=== PATIENT | male | born 1955 ===

== ENCOUNTER 2024-10-11 08:46 | Inpatient (IN) ==
--- NOTE | 2024-09-04 13:29 | PAT Medication Instructions ---
Medication Instructions Date of Service September 04, 2024 Home Medications ascorbic acid (vitamin C) 1,000 mg tablet (Vitamin C) 1 g PO QAM aspirin 81 mg capsule 81 mg PO QAM cholecalciferol (vitamin D3) 50 mcg (2,000 unit) capsule (Vitamin D3) 50 mcg PO QAM cyanocobalamin (vitamin B-12) 2,000 mcg tablet,extended release (Vitamin B-12 ER) 2,000 mcg PO QAM empagliflozin 25 mg tablet (Jardiance) 25 mg PO QAM esomeprazole magnesium 40 mg capsule,delayed release 40 mg PO QAM fenofibrate nanocrystallized 145 mg tablet 145 mg PO QAM glipizide 5 mg tablet, extended release 24 hr 5 mg PO QAM pioglitazone 30 mg tablet 30 mg PO QAM rosuvastatin 20 mg tablet 40 mg PO QAM varenicline tartrate 1 mg tablet 1 mg PO BID MEDICATION INSTRUCTIONS: ASK your prescriber and surgeon aspirin 81 mg capsule 81 mg PO QAM STOP taking 24 hours before surgery fenofibrate nanocrystallized 145 mg tablet 145 mg PO QAM DO NOT take the morning of surgery cholecalciferol (vitamin D3) 50 mcg (2,000 unit) capsule (Vitamin D3) 50 mcg PO QAM ascorbic acid (vitamin C) 1,000 mg tablet (Vitamin C) 1 g PO QAM cyanocobalamin (vitamin B-12) 2,000 mcg tablet,extended release (Vitamin B-12 ER) 2,000 mcg PO QAM varenicline tartrate 1 mg tablet 1 mg PO BID glipizide 5 mg tablet, extended release 24 hr 5 mg PO QAM pioglitazone 30 mg tablet 30 mg PO QAM Take morning of surgery With a small sip of water, OTHERWISE NOTHING TO EAT OR DRINK AFTER MIDNIGHT: rosuvastatin 20 mg tablet 40 mg PO QAM esomeprazole magnesium 40 mg capsule,delayed release 40 mg PO QAM Take evening before surgery varenicline tartrate 1 mg tablet 1 mg PO BID Other Notes STOP taking 3 days before surgery: empagliflozin 25 mg tablet (Jardiance) 25 mg PO QAM If you have any questions please call us at [phone] or [phone] or [phone] or [phone]
--- NOTE | 2024-09-11 12:39 | Anesthesiology Consultation ---
Date of Service September 11, 2024 Assessment & Plan (1) Encounter for pre-operative examination: Plan - check BSG am DOS. - cardiology office visit 07/20/24: "...coronary artery disease (CABG 2002)/ischemic cardiomyopathy. Stable. No anginal symptoms reported. Breathing stable. Euvolemic on examination...LVEF mildly reduced/lower limits of normal ~ 50%...of note, he may require back surgery in the near future. At this point he is stable and optimized from cardiac standpoint. Provided there is no change in his clinical status prior to the anticipated operation, he may proceed without additional cardiac testing..." - facial hair: patient was instructed on shaving/trimming facial hair. Chart Review Chart Review: Acceptable Risk for Surgery and Patient seen in Pre Admission Testing Teaching & Discussion Pre-Anesthesia Teaching/Discussion Notes: Instructed NPO after midnight before surgery, except medications with 15 cc of water. Medication instructions provided according to the PAT guidelines. History Surgery Operation Date: 10/11/24 07:45 Proposed Procedures p L3-L5 Decompression and Fusion, Possible L5-S1, Spinal Cord Monitoring - Giovanni Girard DO Height/Weight Height: 6 ft Weight: 113.6 kg Allergies Allergy/AdvReac Type Severity Reaction Status Date / Time Gadolinium-Containing Allergy Chest Pain Verified 09/01/24 09:33 Contrast Medi Medications Home Medications Medication Instructions Recorded Confirmed Last Taken ascorbic acid (vitamin C) 1,000 mg 1 g PO QAM 09/01/24 09/01/24 Unknown tablet (Vitamin C) aspirin 81 mg capsule 81 mg PO QAM 09/01/24 09/01/24 Unknown cholecalciferol (vitamin D3) 50 50 mcg PO QAM 09/01/24 09/01/24 Unknown mcg (2,000 unit) capsule (Vitamin D3) cyanocobalamin (vitamin B-12) 2,000 mcg PO QAM 09/01/24 09/01/24 Unknown 2,000 mcg tablet,extended release (Vitamin B-12 ER) empagliflozin 25 mg tablet 25 mg PO QAM 09/01/24 09/01/24 Unknown (Jardiance) esomeprazole magnesium 40 mg 40 mg PO QAM 09/01/24 09/01/24 Unknown capsule,delayed release fenofibrate nanocrystallized 145 145 mg PO QAM 09/01/24 09/01/24 Unknown mg tablet glipizide 5 mg tablet, extended 5 mg PO QAM 09/01/24 09/01/24 Unknown release 24 hr pioglitazone 30 mg tablet 30 mg PO QAM 09/01/24 09/01/24 Unknown rosuvastatin 20 mg tablet 40 mg PO QAM 09/01/24 09/01/24 Unknown varenicline tartrate 1 mg tablet 1 mg PO BID 09/01/24 09/01/24 Unknown Past Medical History Medical History (Updated 09/11/24 @ 15:34 by Disha Harvey PA-C) Aortic stenosis mild on 08/13/2023 echo CAD (coronary artery disease) s/p CABG x 4 in 2002 per cardio records (5 per patient) and THEODORE to mid LAD 2003 (patient believes there are 2) Diabetes mellitus, type 2 NIDDM History of COPD controlled, stable per pt-denies inhaler use History of [place] (myocardial infarction) multiple, most recent 2014-med management advised per cardio records Hx of gastroesophageal reflux (GERD) controlled, stable per pt Hx of hyperlipidemia Hypertension controlled, stable per pt Ischemic cardiomyopathy Sleep apnea no device Patient denies h/o stroke, seizures, blood clots/DVTs or blood transfusions. Exercise / Class Metabolic Activity III < 4 Walking/Shop/Light housework (denies chest discomfort or shortness of breath with usual activities) Past Surgical History Surgical History History of cardiac cath multiple, unsure of dates, most done at [facility], 1 done in [place], has total of 2 stents; f/u dr. landry, [facility] cardio History of ear surgery as a child, "unsure exactly what they did" Hx of appendectomy age 14 Hx of CABG CABG x 4 per cardio records-2002 Hx of colonoscopy Hx of tonsillectomy Past Anesthesia History No Hx of Anesthesia Complications and No Family Hx of Anesthesia Complications History of PONV No Hx of PONV and No Hx of Motion Sickness Social History Smoking Status: Former smoker Do You Dip or Chew Tobacco: No Smoking End Date: over 6 weeks ago Hx Alcohol Use: Yes (geremias ruvalcaba) alcohol intake frequency: 0-2 drinks per day Hx Substance Use: Yes substance use type: former substance user, marijuana, crack/cocaine, hallucin ogens, methamphetamine and prescription drug Last Used Substance Other:: "none for years" Review of Systems Patient denies chest pain, shortness of breath, dyspnea on exertion, fever, chills, cough, wheezing, or palpitations. Physical Exam Vital Signs Vitals BP 137/64 P 71 TEMP 98.5 SP02 95% on RA RESP 18 Physical Patient resting comfortably in chair in no acute distress, alert and oriented, responding appropriately throughout visit Full cervical extension range of motion without pain TMD 3.5 finger breadths Mallampati Score 2 Dentition: several chipped and missing teeth, denies loose teeth, caps/crowns, implants or bridges Lungs: normal respiratory effort. Good air movement, clear throughout to auscultation, no adventitious breath sounds Cardiac: regular rate and rhythm, 2/6 systolic murmur, no gallops or rubs Carotid arteries: negative bruit bilat Lab Results Anesthesia Preop Results Results Anesthesia Widget: WBC 8.73 K/ul (4.8-10.8) 09/11/24 Hgb 15.8 g/dl (14.0-18.0) 09/11/24 Hct 47.4 % (42.0-52.0) 09/11/24 Plt 202 K/uL (130-400) 09/11/24 Na 137 mmol/L (136-145) 09/11/24 K 4.1 mmol/L (3.5-5.1) 09/11/24 Cl 101 mmol/L (98-107) 09/11/24 CO2 31 mmol/L (21-32) 09/11/24 BUN 22 mg/dl (6-23) 09/11/24 Creat 1.66 mg/dl (0.6-1.4) H 09/11/24 Glucose Level 151 mg/dl (70-99(Fasting)) H 09/11/24 PT 11.1 Seconds (9.0-12.0) 09/11/24 PTT 27 Seconds (21-31) 09/11/24 INR 1.0 (0.9-1.1) 09/11/24 HA1c 6.9 % (4.5-5.6) H 09/11/24 Urine Color Yellow 09/11/24 Urine Appearance Clear (Clear) 09/11/24 Urine pH 5.0 (4.5-7.5) 09/11/24 Urine Specific [place] 1.036 (1.000-1.030) H 09/11/24 Urine Protein 3+ (Negative) H 09/11/24 Urine Glucose (UA) 2+ (Negative) H 09/11/24 Urine Ketones Trace (Negative) H 09/11/24 Urine Blood Negative (Negative) 09/11/24 Urine Nitrite Negative (Negative) 09/11/24 Urine Bilirubin Negative (Negative) 09/11/24 Urine Urobilinogen Negative (Negative) 09/11/24 Urine Leukocyte Esterase Negative (Negative) 09/11/24 Urine WBC (Auto) 0-5 /hpf (0-5) 09/11/24 Urine RBC (Auto) 0-2 /hpf (0-2) 09/11/24 Urine Hyaline Casts (Auto) 0-2 /lpf (0-2) 09/11/24 Urine Epithelial Cells (Auto) 0-2 /hpf (0-2) 09/11/24 Urine Bacteria (Auto) None Seen (None Seen) 09/11/24 Blood Type A Positive 09/11/24 Antibody Screen NEGATIVE 09/11/24 Testing Electrocardiogram Date: 07/20/24 Sinus rhythm-frequent ectopic ventricular beats, rate 73 bpm Nonspecific QRS widening Chest X-Ray Date: 09/11/24 No acute cardiopulmonary findings. Cardiomegaly. Echocardiogram Date: 08/13/23 EF 50% Normal LV wall motion Mildly calcified mitral valve, mild mitral regurgitation Mild aortic stenosis (ARGLEIA 1.7 cm2, mean gradient 9 mmHg) Mildly dilated 3.7 cm Dilated inferior vena cava Stress Test Date: 12/29/21 Negative for ischemia Moderate sized fixed perfusion defect involving the inferolateral wall re- demonstration Hypokinesis of the septal wall EF 32%
[2024-10-11] MEDS: LR 15ML/HR IV SCH (09:49)
[2024-10-11] MEDS: LR 60ML/HR IV SCH (09:50)
[2024-10-11] MEDS: GABAPENTIN 300 MG CAP PO SCH (09:56)
[2024-10-11] MEDS: ACETAMINOPHEN 500 MG TAB PO SCH (09:56)
[2024-10-11] MEDS: CeleBREX 200 MG CAP PO SCH (09:56)
[2024-10-11] MEDS ORDERED: fentaNYL citrate PF 100 MCG/2 ML VIAL ONE (10:02)
[2024-10-11] MEDS ORDERED: ROCURONIUM BROMIDE 10 MG/ML 5 ML VIAL IV ONE (10:02)
[2024-10-11] MEDS ORDERED: ONDANSETRON INJ 2 MG/ML 2 ML VIAL ONE (10:02)
[2024-10-11] MEDS ORDERED: LIDOCAINE 2% 2 ML VIAL/AMP(20MG/ML) INFIL ONE (10:02)
[2024-10-11] MEDS ORDERED: PROPOFOL IV EMULSION 10 MG/ML 20 ML VIAL IV ONE (10:02)
--- NOTE | 2024-10-11 10:17 | History & Physical Bridge Note ---
Date of Service October 11, 2024 History & Physical Bridge Note I have examined the patient, reviewed the History & Physical and in the interval since the performance of the History & Physical I have noted the following changes of clinical significance: no changes noted
--- NOTE | 2024-10-11 10:18 | History & Physical Report ---
Date of Service October 11, 2024 Assessment & Plan (1) Two-level lumbosacral spondylosis with radiculopathy: Plan: L3-L5 decompression and fusion, possible L5-S1 History of Present Illness Chief Complaint: Back and leg pain Primary Care Provider: NO PCP This is a 69-year-old male presents chronic persistent back and leg pain after failing course of nonoperative care is here for surgical invention. Allergies Allergy/AdvReac Type Severity Reaction Status Date / Time Gadolinium-Containing Allergy Chest Pain Verified 10/11/24 09:18 Contrast Medi Home Medications Medication Instructions Recorded Confirmed Type ascorbic acid (vitamin C) 1,000 mg 1 g PO QAM 09/01/24 10/11/24 History tablet (Vitamin C) aspirin 81 mg capsule 81 mg PO QAM 09/01/24 10/11/24 History cholecalciferol (vitamin D3) 50 50 mcg PO QAM 09/01/24 10/11/24 History mcg (2,000 unit) capsule (Vitamin D3) cyanocobalamin (vitamin B-12) 2,000 mcg PO QAM 09/01/24 10/11/24 History 2,000 mcg tablet,extended release (Vitamin B-12 ER) empagliflozin 25 mg tablet 25 mg PO QAM 09/01/24 10/11/24 History (Jardiance) esomeprazole magnesium 40 mg 40 mg PO QAM 09/01/24 10/11/24 History capsule,delayed release fenofibrate nanocrystallized 145 145 mg PO QAM 09/01/24 10/11/24 History mg tablet (Tricor) glipizide 5 mg tablet, extended 5 mg PO QAM 09/01/24 10/11/24 History release 24 hr rosuvastatin 20 mg tablet 40 mg PO QAM 09/01/24 10/11/24 History varenicline tartrate 1 mg tablet 1 mg PO BID 09/01/24 10/11/24 History (Chantix) Past Med/Surg History Problem List (Updated 10/11/24 @ 10:18 by Giovanni Girard DO) Two-level lumbosacral spondylosis with radiculopathy Medical History (Updated 10/11/24 @ 10:18 by Giovanni Girard DO) Aortic stenosis mild on 08/13/2023 echo Hypertension controlled, stable per pt Ischemic cardiomyopathy History of [place] (myocardial infarction) multiple, most recent 2015-med management advised per cardio records CAD (coronary artery disease) s/p CABG x 4 in 2002 per cardio records (5 per patient) and [place] to mid LAD 2003 (patient believes there are 2) Sleep apnea no device History of COPD controlled, stable per pt-denies inhaler use Hx of gastroesophageal reflux (GERD) controlled, stable per pt Diabetes mellitus, type 2 NIDDM Hx of hyperlipidemia Surgical History Hx of colonoscopy Hx of tonsillectomy Hx of appendectomy age 14 History of ear surgery as a child, "unsure exactly what they did" History of cardiac cath multiple, unsure of dates, most done at [facility], 1 done in [place], has total of 2 stents; f/u dr. landry, [facility] cardio Hx of CABG CABG x 4 per cardio records-2002 Social History Smoking Status: Former smoker Smoking End Date: over 6 weeks ago; Second Hand Exposure: Yes ( and family smoke); Do You Dip or Chew Tobacco: No; Tobacco Cessation Education Requested by Patient: No Hx Alcohol Use: Yes (geremias patel coolThe Black Tux) Hx Substance Use: Yes Last Used Substance Other:: "none for years" Preferred Language: Setswana Communication Ability: Effective Blood Bank Business Manager Required: No Beliefs That Will Affect Care: None Current Living Situation: Spouse and Family Other Information That Helps Us Care for You: No Feels Safe at Home: Yes Safety Concerns: Feels Safe At This Time Assistive Devices: Glasses and Hearing Aid - Bilateral Physical Exam Physical Exam: Patient is alert and oriented Heart regular in rhythm Lungs clear Results & Data Results & Data Vital Signs (Past 12 Hours) Vital Signs Temp Pulse Resp BP Pulse Ox O2 Del Method 10/11/24 09:23 36.6 C 80 20 161/92 H 96 Room Air
[2024-10-11] MEDS ORDERED: ePHEDrine sulfate 50 MG/ML AMP IV PRN (10:23)
[2024-10-11] MEDS ORDERED: HYDROmorphone INJ 2 MG/ML SYR/VIAL IV PRN (10:23)
[2024-10-11] MEDS ORDERED: ONDANSETRON INJ 2 MG/ML 2 ML VIAL IV PRN ×2 (10:23→15:02)
[2024-10-11] MEDS ORDERED: fentaNYL citrate PF 100 MCG/2 ML VIAL IV PRN (10:23)
[2024-10-11] MEDS ORDERED: ATROPINE SULFATE 0.1 MG/ML 10ML SYR IV PRN (10:23)
[2024-10-11] MEDS ORDERED: SUCCINYLCHOLINE CHLORIDE 20 MG/ML 10 ML VIAL IV ONE (10:24)
[2024-10-11] MEDS: ceFAZolin 2000MG 2,000 MG/15 ML SYR IV SCH ×2 (10:35→18:45)
[2024-10-11] MEDS: BUPIVACAINE/EPINEPHRINE 0.25% 1:200,000 30 ML VIAL ONE (11:06)
[2024-10-11] MEDS ORDERED: HYDROmorphone INJ 2 MG/ML SYR/VIAL ONE (11:12)
[2024-10-11] MEDS: ceFAZolin 330 MG/ML 1 GM VIAL ONE (11:38)
[2024-10-11] MEDS ORDERED: ePHEDrine sulfate 50 MG/5 ML SYR ONE (11:45)
[2024-10-11] MEDS ORDERED: SUGAMMADEX SODIUM 200 MG/2 ML VIAL IV ONE (12:52)
--- NOTE | 2024-10-11 12:58 | Operative Report ---
Post Operative Report Pre & Post Diagnosis Operation Date: 10/11/24 11:10 Pre-Op Diagnosis: #1 lumbar spondylosis with radiculopathy #2 lumbar spondylolisthesis with radiculopathy #3 lumbar spinal stenosis #4 obesity Post-Op Diagnosis: Same I identified the patient and participated in the time-out.: Yes Procedure Operation Date: 10/11/24 11:10 Actual Procedures #1 lumbar decompression with bilateral medial facetectomies and foraminotomies L2-L3, L3-L4 and L4-5. #2 posterior spinal fusion L3-L5. #3 placement posterior instrumentation L3-L5. #4 interbody fusion L3-L4 L4-L5 #5 placement of Spira 15 x 26 mm x 2 at L3-L4 and 16 x 26 mm x 2 at L4-L5. #6 placement locally harvested morselized or graft in the posterior gutters. #7 placement infuse collagen sponge combined with Koros in the posterior lateral gutters and os design interbody space. #8 application of versa wrap over the exposed dura. Surgeon Giovanni Girard, DO Python Architect Radha Patel Estimated Blood Loss 550 Findings See Below The patient is 6 foot 1 weighing over 115 kg with a BMI in excess of 33. Patient's body mass did contribute to significant technical difficulty with positioning exposure and the procedure itself adding at least 50% increased operative time. Specimens None Indications This is a 69-year-old male presents publish diagnosis after failing course of nonoperative care is here for surgical invention. Description of Procedure Patient was met with identified informed consent obtained. Patient was then taken to the operative suite underwent intubation placed in a prone position of the Fredo table atop the Jac frame. All bony prominences well-padded eyes inspected to ensure no external pressure placed upon them. This point the lumbar spine was prepped and draped in normal sterile fashion. Sharp dissection with the assistance of Bovie cautery performed down to and exposing the lamina and transverse processes of L3 L4-5 bilaterally. I then performed a complete laminectomy of L4 including bilateral medial facetectomies and foraminotomies addressing severe neural compression. This is followed by complete laminectomy of L3 with bilateral medial facetectomies and foraminotomies addressing severe neural compression and lastly partial laminectomy of L2 with bilateral medial facetectomies to address all subarticular stenosis. Pedicle screws were then placed in L3 L4-5 bilaterally with assistance of fluoroscopy and appropriate sized brittni placed. By way of a transforaminal approach on the right discectomy of L4-L5 was performed endplates guided to subcortical bleeding bone and a 16 x 26 mm spiral cage filled with os design bone graft tapped in position. I then proceeded to the left transforaminal region at L4-L5. Again discectomy performed. Endplates curetted to subcortical bleeding bone and a second 16 x 26 mm spiral cage filled with os design bone graft tapped into position. Then proceeded to L3-L4 and bilayer transfer approach and right discectomy was performed endplates guided to subcortical bleeding bone and a 15 x 26 mm spiral cage filled with os design bone graft tapped in position. I then proceeded to the left transforaminal region at L3-L4. Again discectomy performed. Endplates guided to subcortical bleeding bone and a second 15 x 26 mm spiral cage filled with os design bone graft tapped in position. The rods were then compressed locked into final position bilaterally. The transverse processes of L3-L4-L5 burred to subcortical bleeding bone. Infuse collagen sponge, with Koros and local autograft placed in the posterior gutters. 15 round CHRIS drain inserted. First wrap placed over the exposed dura. Incision was then closed with 1 Vicryl the fascia 2-0 Vicryl subcutaneously and 4 Monocryl for final skin closure. Steri-Strip sterile dressing placed. Patient waken taken PACU stable condition. Please note spinal cord monitoring was utilized at the procedure no changes noted. Radha Patel was present at the entire procedure and while the patient positioning complex portions of the surgery and final skin closure. I attest to the content of the Intraoperative Record and any orders documented therein. Any exceptions are noted below.
[2024-10-11] MEDS: FLOSEAL HEMOSTATIC MATRIX 10ML TOP ONE (13:03)
--- NOTE | 2024-10-11 13:10 | Fluoroscopy Report ---
FL lumbar spine 2-3V CLINICAL HISTORY: L3-L5 Decompression/fusion COMPARISON STUDY: None FLUOROSCOPY TIME: 21 seconds FLUOROSCOPY IMAGES: 3 EXPOSURE DOSE: 19.34 mGy FINDINGS: Fluoroscopic guidance provided for lumbar multilevel fusion. IMPRESSION: Please refer to the operative report for evaluation based upon a real-time fluoroscopic o bservation. ACT 112: Negative or not required by law. Electronically signed by: Hamida Madera M.D. 10/11/2024 1:08 PM
--- NOTE | 2024-10-11 14:10 | Anesthesiology Progress Note ---
Date of Service October 11, 2024 Anesthesia Post Procedure Vital Signs Vital Signs: Temp Pulse Pulse Resp BP Pulse Ox O2 Del Method 10/11/24 13:55 36.5 C 71 13 151/77 H 94 Nasal Cannula 10/11/24 13:45 69 12 154/82 H 93 Oxymask 10/11/24 13:35 73 12 159/80 H 96 Oxymask 10/11/24 13:25 76 17 163/94 H 98 Oxymask 10/11/24 13:16 36.8 C 70 16 159/84 H 96 Oxymask 10/11/24 09:23 36.6 C 80 20 161/92 H 96 Room Air O2 Flow Rate 10/11/24 13:55 2 10/11/24 13:45 2 10/11/24 13:35 9 10/11/24 13:25 9 10/11/24 13:16 9 10/11/24 09:23 Pain Intensity Back: Pain Intensity: 4 Transfer of Care Handoff Completed per policy Notes Mental Status: alert / awake / arousable and participated in evaluation Patient Amnestic to Procedure: Yes Nausea / Vomiting: adequately controlled Pain: adequately controlled Airway Patency, RR, SpO2: stable & adequate BP & HR: stable & adequate Hydration State: stable & adequate Anesthetic Complications: no major complications apparent and Pt Satisfied with anesthetic care
[2024-10-11] MEDS ORDERED: SOD PHOSPHATE/SOD BIPHOSPHATE ENEMA 132 ML BTL PR PRN (15:02)
[2024-10-11] MEDS ORDERED: HYDROmorphone INJ 0.5 MG/0.5 ML SYR IV PRN (15:02)
[2024-10-11] MEDS ORDERED: hydrOXYzine HCl 25 MG TAB PO PRN (15:02)
[2024-10-11] MEDS ORDERED: diphenhydrAMINE Capsule 25 MG CAP PO PRN (15:02)
[2024-10-11] MEDS ORDERED: PHARMACY GLYCEMIC MGMT CONSULT PRN (15:02)
[2024-10-11] MEDS ORDERED: MAGNESIUM HYDROXIDE SUSP 30 ML UDC PO PRN (15:02)
[2024-10-11] MEDS ORDERED: FAMOTIDINE 20 MG TAB PO PRN (15:02)
[2024-10-11] MEDS ORDERED: DO NOT ADMINISTER PNEUMOCOCCAL VACCINE PRN (15:02)
[2024-10-11] MEDS ORDERED: ALUMINUM/MAGNESIUM SUSP 30 ML UDC PO PRN (15:02)
[2024-10-11] MEDS ORDERED: ONDANSETRON 4 MG OD TAB PO PRN (15:02)
[2024-10-11] MEDS ORDERED: NALOXONE HCL 0.4 MG/1 ML VIAL/CARP IV PRN (15:02)
[2024-10-11] MEDS ORDERED: PROMETHAZINE 12.5 MG/50.5 ML BAG IV PRN (15:02)
[2024-10-11] MEDS ORDERED: bisacodyL 10 MG SUPP PR PRN (15:02)
[2024-10-11] MEDS ORDERED: DO NOT ADMINISTER FLU VACCINE PRN (15:02)
[2024-10-11] MEDS ORDERED: LORazepam 0.5 MG TAB PO PRN (15:02)
[2024-10-11] MEDS ORDERED: METOCLOPRAMIDE HCL INJ 5 MG/ML 2 ML VIAL IV PRN (15:02)
[2024-10-11] MEDS ORDERED: HYDROmorphone INJ 1 MG/ML SYRINGE IV PRN (15:02)
[2024-10-11] MEDS ORDERED: ACETAMINOPHEN 1,000 MG/100 ML VIAL IV PRN (15:02)
[2024-10-11] MEDS ORDERED: LORazepam 2 MG/1 ML VIAL IV PRN (15:02)
--- NOTE | 2024-10-11 17:38 | Hospitalist Consultation ---
Date of Consultation October 11, 2024 Assessment & Plan (1) Hypertension: (2) History of MN (myocardial infarction): (3) CAD (coronary artery disease): (4) Hx of gastroesophageal reflux (GERD): (5) Diabetes mellitus, type 2: Plan Cedrick is a 69-year-old male with a past medical history of aortic stenosis, hypertension, history of MN and CABG, GERD, and type 2 diabetes who presents to the hospital for elective back surgery. Hospital medicine was consulted for medical management. #hx of CABG/HTN/CAD Follows with [facility] cardiology, CABG was in 2002. Continue statin, fenofibrate, aspirin Reviewed cardiology note 09/14 - patient states he no longer takes losartan or carvedilol. Carvedilol listed as to be continued through perioperative period, but last filled from 02/2024. Will not resume at this time. Chest pain free at time of consult #S/p Back surgery L3-L5 decompression and Fusion with Dr. Girard 10/11 EBL 550 - monitor AM CBC and BMP DVT proh/pain control/abx/ dc planning per primary team Wean O2 as able, baseline is room air. Encourage IS #Diabetes type 2 Home med: Glipizide, pioglitazone, Jardiance Pharmacy glycemic consult per primary team #COPD - Trelegy listed on med list but pt does not take, maybe once a week. PRN albuterol while inpatient #GERD - continue PPI #Tobacco use Continue to encourage sensation. Continue Chantix twice daily (patient has his own med) Thank you for allowing us to participate in the care of this patient, please reach out with any questions or concerns. Medicine will continue to follow for AM labs. Supervising Physician Co-Signing Physician Notes Attending Attestation & Consult Note: Pt seen/examined, chart reviewed, consult care plan d/w JUNE Kothari. I agree w/ the jj components of her consult documentation. 69yo male with history of aortic stenosis, hypertension, CAD s/p MN and CABG (treated at [facility] for all cardiac events & surgery), GERD, and T2DM presented to [facility] today for elective lumbar back surgery due to severe DJD of the l-spine. Specifically, Dr Girard performed the following - * lumbar decompression with bilateral medial facetectomies and foraminotomies at L2-L3, L3-L4 and L4-5 * posterior spinal fusion at L3-L5 EBL per the op note about 550ml. I saw Mr Anguiano on the med/surg floor after dinner. He tolerated his meal w/o nausea, emesis or abd pain. Denies any post-op chest pain or dyspnea. He confirms he is not on O2 at home nor any CPAP/BIPAP device. Does c/o mild numbness in several toes of the right foot. PMH/PSH/allergies/meds/sochx- reviewed exam - VSS, afebrile gen - lying in bed comfortably, NAD neck - no JVD chest - midline sternal scar heart - RRR, s1 s2, 1/6 systolic murmur RUSB lungs - CTA b/l abd - soft NT ND BS+ ext - no edema, pulses of feet 2+ b/l records from [facility] reviewed including previous echo (EF 50% with mild and mildly dilated aortic root), previous Lexiscan stress, prior cardiology visit notes, etc pre-op labs noted - Cr 1.66, a1c 6.9% A/P: 1. lumbar spine DJD s/p decompression/fusion of l-spine by Dr Girard today; 550ml of blood loss; Am labs tomorrow including CBC, BMP 2. elevated creatinine - unknown baseline - repeat BMP am 3. proteinuria - likely diabetic nephropathy 4. numbness in right foot - likely from l-spine DJD and/or diabetic neuropathy 5. CAD with h/o CABG 6. T2DM - a1c 6.9% in September; pharmacy glycemic team to manage 7. pain control, disposition, etc - defer to primary ortho team Dimitri Soriano MD History of Present Illness Reason for Consultation: medical management Requesting Physician: Dr. Girard Attending Physician: Giovanni Girard, History of Present Illness Cedrick is a 69-year-old male with a past medical history of aortic stenosis, hypertension, history of MN and CABG, GERD, and type 2 diabetes who presents to the hospital for elective back surgery. Hospital medicine was consulted for medical management. Seen postoperatively in room 382-2, present at bedside. Reports feeling sleepy, no pain at the moment but has not done any movement yet. No normally on oxygen at baseline. Unsure of his meds, but has brought his in that we are able to confirm them Last BM was this morning prior to surgery. ETOH occasionally, not a daily drinker Allergies Allergy/AdvReac Type Severity Reaction Status Date / Time Gadolinium-Containing Allergy Chest Pain Verified 10/11/24 09:18 Contrast Medi Home Medications Medication Instructions Recorded Confirmed Type ascorbic acid (vitamin C) 1,000 mg 1 g PO QAM 09/01/24 10/11/24 History tablet (Vitamin C) aspirin 81 mg capsule 81 mg PO QAM 09/01/24 10/11/24 History cholecalciferol (vitamin D3) 50 50 mcg PO QAM 09/01/24 10/11/24 History mcg (2,000 unit) capsule (Vitamin D3) cyanocobalamin (vitamin B-12) 2,000 mcg PO QAM 09/01/24 10/11/24 History 2,000 mcg tablet,extended release (Vitamin B-12 ER) empagliflozin 25 mg tablet 25 mg PO QAM 09/01/24 10/11/24 History (Jardiance) esomeprazole magnesium 40 mg 40 mg PO QAM 09/01/24 10/11/24 History capsule,delayed release fenofibrate nanocrystallized 145 145 mg PO QAM 09/01/24 10/11/24 History mg tablet (Tricor) glipizide 5 mg tablet, extended 5 mg PO QAM 09/01/24 10/11/24 History release 24 hr rosuvastatin 20 mg tablet 40 mg PO QAM 09/01/24 10/11/24 History varenicline tartrate 1 mg tablet 1 mg PO BID 09/01/24 10/11/24 History (Chantix) Patient History Medical History (Updated 10/11/24 @ 10:18 by Giovanni Girard DO) Aortic stenosis mild on 08/13/2023 echo Hypertension controlled, stable per pt Ischemic cardiomyopathy History of MN (myocardial infarction) multiple, most recent 2015-med management advised per cardio records CAD (coronary artery disease) s/p CABG x 4 in 2002 per cardio records (5 per patient) and [facility] to mid LAD 2003 (patient believes there are 2) Sleep apnea no device History of COPD controlled, stable per pt-denies inhaler use Hx of gastroesophageal reflux (GERD) controlled, stable per pt Diabetes mellitus, type 2 NIDDM Hx of hyperlipidemia Surgical History Hx of colonoscopy Hx of tonsillectomy Hx of appendectomy age 14 History of ear surgery as a child, "unsure exactly what they did" History of cardiac cath multiple, unsure of dates, most done at [facility], 1 done in [place], has total of 2 stents; f/u dr. landry, [facility] cardio Hx of CABG CABG x 4 per cardio records-2002 Social History Smoking Status: Former smoker Smoking End Date: over 6 weeks ago; Second Hand Exposure: Yes ( and family smoke); Do You Dip or Chew Tobacco: No; Tobacco Cessation Education Requested by Patient: No Hx Alcohol Use: Yes (geremias ruvalcaba) Hx Substance Use: Yes Last Used Substance Other:: "none for years" Preferred Language: Croatian Communication Ability: Effective Artist Color Separation Required: No Beliefs That Will Affect Care: None Current Living Situation: Spouse and Family Other Information That Helps Us Care for You: No Feels Safe at Home: Yes Safety Concerns: Feels Safe At This Time Assistive Devices: Glasses and Hearing Aid - Bilateral Review of Systems Review of Systems: All systems reviewed & are unremarkable except as noted in Subjective Physical Exam Physical Exam: General: NAD, VS as above, sitting up in bed Resp: normal respiratory effort, diminished in bases CV: RRR, no murmur, Abd: normal bowel sounds, non tender, soft Extremities: Moves all extremities, teds and SCDs in place, able to wiggle toes bilaterally Neuro: A&O x3, Results & Data Results & Data Vital Signs (Past 12 Hours) Vital Signs Temp Pulse Pulse Resp BP Pulse Ox O2 Del Method 10/11/24 15:32 97.3 F L 64 16 165/83 H 95 Nasal Cannula 10/11/24 14:40 72 14 143/99 H 96 Nasal Cannula 10/11/24 14:25 69 12 152/81 H 93 Nasal Cannula 10/11/24 14:15 66 12 151/83 H 95 Nasal Cannula 10/11/24 14:05 72 12 149/97 H 92 Nasal Cannula 10/11/24 13:55 97.7 F 71 13 151/77 H 94 Nasal Cannula 10/11/24 13:45 69 12 154/82 H 93 Oxymask 10/11/24 13:35 73 12 159/80 H 96 Oxymask 10/11/24 13:25 76 17 163/94 H 98 Oxymask 10/11/24 13:16 98.2 F 70 16 159/84 H 96 Oxymask 10/11/24 09:23 97.9 F 80 20 161/92 H 96 Room Air O2 Flow Rate 10/11/24 15:32 2 10/11/24 14:40 2 10/11/24 14:25 2 10/11/24 14:15 2 10/11/24 14:05 2 10/11/24 13:55 2 10/11/24 13:45 2 10/11/24 13:35 9 10/11/24 13:25 9 10/11/24 13:16 9 10/11/24 09:23 Laboratory Results [id number] glucose reviewed PG Care Time/CCT Total # of Minutes Spent Total Time Spent with Patient: Total time spent is greater than 50% in coordination of care (as documented) at patient's floor/unit and/or counseling patient: Coding Level of Care Code 32984 IN/OBS CONSULT LVL 3,45M Diagnoses Hypertension I10 History of MN (myocardial infarction) I25.2 CAD (coronary artery disease) I25.10 Hx of gastroesophageal reflux (GERD) Z87.19 Diabetes mellitus, type 2 E11.9
[2024-10-11] MEDS: INSULIN ASPART PER UNIT CHARGE SC SCH (17:51)
[2024-10-11] MEDS ORDERED: ALBUTEROL HFA 8 GM INHALER INH PRN (18:04)
[2024-10-11] MEDS: traMADol HCL 50 MG TABLET PO PRN (19:59)
[2024-10-11] MEDS: DOCUSATE SODIUM/SENNA 50/8.6MG TAB PO SCH (20:01)
[2024-10-11] MEDS: oxyCODONE HCL IR 5 MG TAB (IMMEDIATE RELEASE) PO PRN (20:49)
[2024-10-12] MEDS: ACETAMINOPHEN 500 MG TAB PO PRN (05:44)
[2024-10-12] MEDS: POLYETHYLENE (MIRALAX) 17 GM PACK PO SCH (05:44)
[2024-10-12] MEDS: dexAMETHasone 6 MG in SYRINGE 0 ML IV SCH (08:27)
[2024-10-12] MEDS: CYANOCOBALAMIN (B-12) 500 MCG TABLET PO SCH (08:28)
[2024-10-12] MEDS: ROSUVASTATIN CALCIUM 20 MG TAB PO SCH (08:28)
[2024-10-12] MEDS: PANTOprazole 40 MG TAB PO SCH (08:28)
[2024-10-12] MEDS: CHOLECALCIFEROL 25 MCG (1000 UNITS) TAB PO SCH (08:28)
[2024-10-12] MEDS: ASCORBIC ACID 500 MG TAB PO SCH (08:28)
[2024-10-12] MEDS: FENOFIBRATE NANOCRYSTALLIZED 145 MG TABLET PO SCH (08:28)
[2024-10-12] MEDS: ASPIRIN 81 MG ECTAB PO SCH (08:29)
[2024-10-12 09:00] LABS: Basophils # (auto) 0.01 K/uL (0.00-0.20); Basophils % (auto) 0.1 %; Eosinophils # (auto) 0.07 K/uL (0.00-0.50); Eosinophils % (auto) 0.7 %; Hematocrit (blood only) 41.7 % (42.0-52.0); Hemoglobin 13.4 g/dl (14.0-18.0); Immature Granulocytes # (auto) 0.03 K/uL (0.01-0.20); Immature Granulocytes % (auto) 0.3 %; Lymphocytes # (auto) 1.18 K/uL (1.20-3.40); Lymphocytes % (auto) 12.4 %; Mean Corpuscular Hemoglobin 31.7 pg (25.0-34.0); Mean Corpuscular Hgb Conc 32.1 g/dL (32.0-36.0); Mean Corpuscular Volume 98.6 fL (80.0-100.0); Mean Platelet Volume 11.6 fL (9.4-12.4); Monocytes # (auto) 0.82 K/uL (0.11-0.59); Monocytes % (auto) 8.6 %; Neutrophils # (auto) 7.39 K/uL (1.40-6.50); Neutrophils % (auto) 77.9 %; Platelet Count 155 K/uL (130-400); Red Blood Count 4.23 M/uL (4.70-6.10)
[2024-10-12] MEDS ORDERED: glipiZIDE ER 2.5 MG TABCR PO SCH (09:00)
[2024-10-12] MEDS ORDERED: EMPAGLIFLOZIN 25 MG TAB PO SCH (09:00)
[2024-10-12 09:14] LABS: BUN Creatinine Ratio 15.4 (10-20); Calcium 8.6 mg/dl (8.6-10.3); Creatinine Clr Calc Pharmacy 56.6 ml/min; Potassium 4.5 mmol/L (3.5-5.1)
--- NOTE | 2024-10-12 10:53 | Hospitalist Progress Note ---
Date of Service October 12, 2024 Assessment & Plan (1) Hypertension: (2) History of SD (myocardial infarction): (3) CAD (coronary artery disease): (4) Hx of gastroesophageal reflux (GERD): (5) Diabetes mellitus, type 2: Plan Cedrick is a 69-year-old male with a past medical history of aortic stenosis, hypertension, history of SD and CABG, GERD, and type 2 diabetes who presents to the hospital for elective back surgery. Hospital medicine was consulted for medical management. #hx of CABG/HTN/CAD Follows with [facility] cardiology, CABG was in 2002. Continue statin, fenofibrate, aspirin Reviewed cardiology note 09/14 - patient states he no longer takes losartan or carvedilol. Carvedilol listed as to be continued through perioperative period, but last filled from 02/2024. Will not resume at this time. Patient aware to discuss with PCP/cardiology if needs to be taking this. Information placed on discharge summary as well, and note faxed to PCP/cardiology. #S/p Back surgery L3-L5 decompression and Fusion with Dr. Girard 10/11 EBL 550 - hgb 13.4, prior was 15.8. Acute blood loss anemia vs dilutional. Cr 1.62 which appears to be baseline. DVT proh/pain control/abx/ dc planning per primary team Now on room air - Encourage IS #Diabetes type 2 Home med: Glipizide, pioglitazone, Jardiance Pharmacy glycemic consult per primary team #COPD - Trelegy listed on med list but pt does not take, maybe once a week. PRN albuterol while inpatient #GERD - continue PPI #Tobacco use Continue to encourage sensation. Continue Chantix twice daily (patient has his own med) Thank you for allowing us to participate in the care of this patient, please reach out with any questions or concerns. Medicine will sign off, please reach out with any concerns. Admission and Anticipated Discharge Date Admission Date: October 11, 2024 Supervising Physician Co-Signing Physician Notes PA Supervision Note: I did not personally see or examine the patient today, but I verified all jj points of JUNE Kothari's assessment and plan with the following exceptions/additions: None Subjective Patient seen getting back to bed after working with therapy. Reports pain but worried about taking more medications as pain medication has made him "loopey" in the past passing gas tolerating diet aware to discuss with PCP/publication director about carvedilol and losartan prescription discrepancy Review of Systems Review of Systems: All systems reviewed & are unremarkable except as noted in Subjective Physical Exam Physical Exam: General: NAD, VS as above, sitting up in bed Resp: normal respiratory effort, diminished in bases, now on room air CV: RRR, no murmur, Abd: normal bowel sounds, non tender, soft Extremities: Moves all extremities, teds and SCDs in place, able to wiggle toes bilaterally Neuro: A&O x3, Results & Data Results & Data Vital Signs (Past 12 Hours) Vital Signs Temp Pulse Resp BP Pulse Ox O2 Del Method O2 Flow Rate 10/12/24 08:25 Room Air 10/12/24 07:49 98.1 F 94 H 18 145/82 H 93 Room Air 10/12/24 03:23 98.2 F 71 18 146/84 H 94 Nasal Cannula 2 10/11/24 23:14 98.2 F 72 18 131/79 93 Nasal Cannula 2 Laboratory Results cbc and chemistry reviewed PG Care Time/CCT Total # of Minutes Spent Total Time Spent with Patient: Total time spent is greater than 50% in coordination of care (as documented) at patient's floor/unit and/or counseling patient: Coding Level of Care Code 29741 SUB INP/OBS CARE 2/35MIN Diagnoses Hypertension I10 History of SD (myocardial infarction) I25.2 CAD (coronary artery disease) I25.10 Hx of gastroesophageal reflux (GERD) Z87.19 Diabetes mellitus, type 2 E11.9
--- NOTE | 2024-10-12 12:18 | Orthopedic Progress Note ---
Date of Service October 12, 2024 Assessment & Plan (1) Two-level lumbosacral spondylosis with radiculopathy: Plan: At this time we will initiate physical therapy monitor his CHRIS output likely discharge home in the next few days. Admission and Anticipated Discharge Date Admission Date: October 11, 2024 Subjective Back pain is controlled leg symptoms improved. Physical Exam Physical Exam: Patient is currently in bed. Neurologically intact. Results & Data Vital Signs (Past 12 Hours) Vital Signs Temp Pulse Resp BP Pulse Ox O2 Del Method O2 Flow Rate 10/12/24 11:25 36.2 C L 94 H 18 101/64 93 Nasal Cannula 2 10/12/24 08:25 Room Air 10/12/24 07:49 36.7 C 94 H 18 145/82 H 93 Room Air 10/12/24 03:23 36.8 C 71 18 146/84 H 94 Nasal Cannula 2 Queries Orthopedic Spine Obesity: Yes
--- NOTE | 2024-10-12 13:18 | Pharmacy Report ---
Pharmacy Glycemic Short Note 2 - Date of Service October 12, 2024 - Glycemic Short BSG Results (Last 24 hours): 10/11/24 10/11/24 10/11/24 13:20 16:40 20:33 Glucose POC Glucose 97 149 H 148 H 10/12/24 10/12/24 07:47 07:55 Glucose 98 POC Glucose 91 OUTPATIENT ANTIDIABETIC REGIMEN: * Jardiance, glipizide * 6.9% 09/11/24 ASSESSMENT: * Patient admitted s/p spinal surgery. * BSGs yesterday [phone] mg/dL with 6 units of insulin * Fasting 91 mg/dL this AM without basal * Dexamethasone 6 mg IV x 3 days ordered (day 2) * Patient refused insulin this morning. Will remove carb coverage for now, continue to hold basal. Monitor for elevated BSGs PLAN FOR INPATIENT GLYCEMIC CONTROL: * Hold outpatient oral diabetes medications * Basal insulin * Hold * Bolus insulin * NovoLog per scale ACHS or Q6hrs while NPO * Goal Range: Low 110 mg/dL - High 140 mg/dL * Correction Factor: 30 mg/dL/unit * Nutritional / Prandial insulin per carb ratio of 1 unit per -- grams CHO consumed
[2024-10-13] MEDS ORDERED: EMPAGLIFLOZIN 25 MG TAB PO SCH (10:30)
--- NOTE | 2024-10-13 10:33 | Pharmacy Report ---
Pharmacy Glycemic Sign Off Nt - Date of Service October 13, 2024 - Assessment & Plan ASSESSMENT: * Pharmacy was consulted by Dr Girard on 10/11/24 for glycemic control and to write orders per [facility] inpatient glycemic control protocol. * Major changes made by pharmacy to antidiabetic regimen include: * Insulin coverage ordered and home oral medications held * Patient has been refusing insulin coverage. BSGs have ranged 91-188-188 mg/dL yesterday, Fasting 136 mg/dL * Patient would like to take his home jardiance, will sign off glycemic control * Do not anticipate further changes in patient status that would quickly deteriorate glycemic control (i.e. patient to be NPO for upcoming procedure, steroids tapering, starting tube feedings, etc). * Please see recommendations for outpatient antidiabetic regimen below. PLAN FOR INPATIENT GLYCEMIC CONTROL: * Patient transitioning to home oral medications * Pharmacy is signing off of glycemic consult and will no longer be making adjustments to inpatient regimen. Please feel free to re-consult if needed. Thank you.
[2024-10-13] MEDS ORDERED: CYCLOBENZAPRINE HCL 10 MG TAB PO PRN (11:44)
--- NOTE | 2024-10-13 11:44 | Orthopedic Progress Note ---
Date of Service October 13, 2024 Assessment & Plan (1) Two-level lumbosacral spondylosis with radiculopathy: Plan: At this time we will continue physical therapy monitor his CHRIS output hopefully discharge home in the next few days. Admission and Anticipated Discharge Date Admission Date: October 11, 2024 Subjective Back pain controlled leg symptoms improving Physical Exam Physical Exam: Patient is in the chair at the bedside. He is comfortable. Distracted testing. Results & Data Vital Signs (Past 12 Hours) Vital Signs Temp Pulse Resp BP 10/13/24 08:00 37.0 C 72 18 145/63 H Queries Orthopedic Spine Obesity: Yes
[2024-10-13] MEDS: EMPAGLIFLOZIN 25 MG TAB PO SCH (12:20)
[2024-10-14 08:13] VITALS: BP 142/82; PULSE 68; RESP 16; TEMP 98.1; O2SAT 94
--- NOTE | 2024-10-14 09:37 | Discharge Summary ---
Date of Service October 14, 2024 Admission HPI Per Admitting Provider This is a 69-year-old male presents chronic persistent back and leg pain after failing course of nonoperative care is here for surgical invention. Principal Diagnosis Lumbar spondylosis with radiculopathy Discharge Data Allergies Allergy/AdvReac Type Severity Reaction Status Date / Time Gadolinium-Containing Allergy Chest Pain Verified 10/11/24 09:18 Contrast Medi Consultations 10/11/24 15:02 Consult Hospitalist Routine Procedures Performed Operation Date: 10/11/24 11:10 Actual Procedures p L3-L5 Decompression and Fusion, Spinal Cord Monitoring(Not Applicable) - Giovanni Girard DO Ordered Studies 10/11/24 06:30 [place] lumbar spine 2-3V Routine Hospital Course (1) Two-level lumbosacral spondylosis with radiculopathy: Patient went multilevel lumbar decompression fusion trial as well as taken o rthopedic for postoperative. Postop he progressed appropriately. Marked improvement of his leg symptoms. Pain controlled. CHRIS drain decreasing. Subsidy discharged home. Discharge orders and instructions from the chart for further review. Total Time Total Time Spent Total Time Spent (In Minutes): 20 minutes Discharge Plan Discharge Items Patient Disposition: Home - Home Health Services Reason For Visit: Lumbar Disc Disease with Radiculopathy, Lumbar For Discharge Diagnosis: Lumbar spondylosis with radiculopathy Activity: As commented below Non-emergency contact: Primary Care Provider Call non-emergency contact if: you have any medication questions Follow-up/Referrals: Geovani Dasilva MD [Primary Care Provider] - (PCP - follow up within one week, discuss coreg and losartan ) PCP,NO [Physician] - Diet: Regular Addtl Attending Provider Instructions: ACTIVITY RECOMMENDATIONS: SELF CARE INSTRUCTIONS AFTER THORACIC/LUMBAR FUSIONS 1. You may walk to your tolerance. It is good exercise for your legs and back. Expect some back and intermittent leg aches and pains. 2. You may perform "counter-top" level activities (make a sandwich, lamar with a project, etc.). 3. No bending or lifting of more than 10 pounds or back twisting of any nature (roll like a log when turning in bed). 4. You may ride in a car for 20-30 minutes at a time. No driving until after your first visit with your doctor. 5. Frequent changes of position and restricting sitting to 30 minutes at a time will help limit the amount of back spasms and stiffness you may experience. 6. You may discontinue the use of ambulatory aids (cane, crutches, etc.) once your strength and confidence allow. 7. You may clinical allergist the shower and let water strike your incision when you arrive home at least once daily. Do not take a tub bath, sit in a hot tub or go into a swimming pool until after your first recheck in the office. 8. You may resume previous diet. SPECIAL CARE INSTRUCTIONS: VERY IMPORTANT TO READ AND REVIEW A. Your surgical incision has been closed with a cosmetic suture under the skin that will dissolve in about 6 weeks. In 14 days, you can use a pair of clean scissors and cut the suture that is left outside of the skin at the ends of your incision. 1. The small skin tapes can be removed 7 days after surgery if they have not fallen off by that point. 2. You may keep the wound open to air as much as possible to promote healing after post-op day number 5 unless told otherwise by your doctor. 3. If you think the wound looks like it is becoming infected (redness or worsening drainage) and/or you are experiencing fever, chill or worsening back pain and muscle spasms, contact the office so that we may evaluate you as soon as possible. B. Complications are uncommon, but please contact us if you have any signs or symptoms of: 1. wound infection (fever higher than 102.5 degrees F, redness, separation of wound, drainage, or increasing pain from the incision) 2. blood clots in legs (pain, swelling, redness and warmth in legs) 3. urinary tract infection (fever higher than 102.5 degrees F, burning upon urination or increased frequency of urination) 4. nerve problems (inability to walk on your toes or heels, numbness, loss of bowel or bladder control) 5. any other symptoms that concern you C. Please call the office at if you have any concerns or questions about your operation or recovery. D. No smoking! Smoking drastically decreases the chance of a solid fusion. E. Do not take any anti-inflammatory medications (Indocin, Advil, Motrin, Aspirin, Naprosyn, etc.) as these may inhibit the chance of a solid fusion. Tylenol is okay to take for pain. MANAGING PAIN AFTER SPINAL SURGERY 1. Narcotic medication is intended for short-term use and will be provided for surgical pain. Surgical pain usually lasts for a period of 4-6 weeks. Narcotic medication includes Percocet, Vicodin, Darvocet, Tylenol #3 or Lortab. 2. Longer-term pain is more appropriately treated with non-narcotic medication such as Tylenol ES. 3. Muscle spasm is not appropriately treated with narcotics. Muscle relaxers such as Soma, Flexeril or Skelaxin can be used along with Tylenol ES. 4. Remember that we all live with some "aches and pains". This is not unusual or uncommon after an injury or as we get older. a. Back pain is expected and may include muscle spasms for 4 to 6 weeks after surgery. The pain should gradually improve. If the pain worsens for no apparent reason, please contact the office. b. Intermittent leg pain may also be experienced and should not be concerned about unless it worsens for no apparent reason. If so, please contact the office. 5. We will provide appropriate medication within the normal guidelines of their prescribed use. We will also be very cautious and aware of potential abuse and extended duration of patients' medication needs. a. Pain medications are for your comfort and to assist with sleep and rest so that the tissue can heal. They are not provided in order to return to normal activity and should not be used through the day. To do so or worsening pain at night can result from ongoing tissue damage and development of tolerance to the prescribed medicine. 6. Please allow 2-3 days to process refills. Prescriptions will not be mailed but must be picked up at the office. FOLLOW UP VISIT: Keep your scheduled follow-up appointment. Any questions, please call the office at . Addtl [employer] Provider Instructions: Hospital Medicine: Please follow up with your PCP/marketing information manager as their notes say that you are taking carvedilol (coreg) and losartan - and you do not have these medications. They may be needed to protect your heart after your heart attack. Pending Studies at Discharge: No Stand-Alone Forms: My [email or web address], Smoking Cessation Medications and DC Order Prescriptions: New tramadol 50 mg tablet 50 mg PO Q6H PRN (Reason: pain, moderate) Qty: 30 0RF oxycodone 5 mg tablet 5 mg PO Q6H PRN (Reason: pain) Qty: 30 0RF Continued ascorbic acid (vitamin C) [Vitamin C] 1,000 mg Tablet 1 g PO QAM glipizide 5 mg Tablet Extended Release 24hr 5 mg PO QAM esomeprazole magnesium 40 mg Capsule,Delayed Release(Dr/Ec) 40 mg PO QAM cyanocobalamin (vitamin B-12) [Vitamin B-12] 2,000 mcg Tablet Extended Release 2,000 mcg PO QAM rosuvastatin 20 mg Tablet 40 mg PO QAM varenicline tartrate [Chantix] 1 mg Tablet 1 mg PO BID Patient Comments: taking one daily fenofibrate nanocrystallized [Tricor] 145 mg Tablet 145 mg PO QAM cholecalciferol (vitamin D3) [Vitamin D3] 50 mcg (2,000 unit) Capsule 50 mcg PO QAM Jardiance 25 mg Tablet 25 mg PO QAM aspirin 81 mg Capsule 81 mg PO QAM Discharge Orders: Discharge Order (Routine); Ordered 10/14/24 Ordered By: Giovanni Girard Admission Data Admit Date/Time: 10/11/24 13:03 Attending Provider: Giovanni Girard Admit Provider: Giovanni Girard Primary Care Provider: Geovani Dasilva Other Providers: Nga Hutton
== END 2024-10-14 10:47 | disposition home health service (06) | DRG 428 ==
LOC: ASU 08:46 → 3N 13:03